=== PATIENT | female | born 2000 | race American Indian/Alaskan Native ===

== ENCOUNTER 2021-08-16 10:26 | Emergency (ER) | payer OTHER ==
[2021-08-16 10:43] VITALS: TEMP 97.1; BMI 19.2
[2021-08-16] MEDS ORDERED: AZITHROMYCIN 250 MG TABLET PO ONE (13:25)
[2021-08-16] MEDS ORDERED: DEXAMETHASONE SOD PHOSPHATE 10 MG/1 ML VIAL IM ONE (13:26)
[2021-08-16] MEDS ORDERED: AZITHROMYCIN 250 MG TABLET ONE (13:36)
[2021-08-16] MEDS ORDERED: DEXAMETHASONE SOD PHOSPHATE 10 MG/1 ML VIAL ONE (13:37)
[2021-08-16] MEDS ORDERED: SODIUM CHLORIDE 1,000 ML IV STA (14:12)
[2021-08-16 15:16] VITALS: BP 101/62; PULSE 65
== END 2021-08-16 16:12 | disposition home or self-care (01) ==
LOC: JER 10:26 → JERFT 10:26
PROC: 3E0233Z Introduction of Anti-inflammatory into Muscle, Percutaneous Approach (ICD-10-PCS; principal; 2021-08-16)
PROC: 3E033GC Introduction of Other Therapeutic Substance into Peripheral Vein, Percutaneous Approach (ICD-10-PCS; 2021-08-16)
PROC: 3E0337Z Introduction of Electrolytic and Water Balance Substance into Peripheral Vein, Percutaneous Approach (ICD-10-PCS; 2021-08-16)
DX: R21 Rash and other nonspecific skin eruption (principal); R59.9 Enlarged lymph nodes, unspecified; J02.9 Acute pharyngitis, unspecified
CPT/HCPCS: 36415; 86308; 87070; 99284-25; J1100